=== PATIENT | male | born 1985 | race Caucasian/White ===

== ENCOUNTER 2021-07-26 01:58 | Emergency (ER) | payer OTHER ==
[~2021-07-26] VITALS: Ht 177.8 cm; Wt 127.0 kg
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
[2021-07-26 02:00] VITALS: BP 125/85
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
[2021-07-26] MEDS: ONDANSETRON 4 MG/2 ML VIAL IVP ONE (02:32)
[2021-07-26] MEDS: fentaNYL citrate 0.05 MG/ML VIAL IVP ONE (02:33)
[2021-07-26 02:39] LABS: HEMOGLOBIN 13.4 g/dL (12.0-18.0)
[2021-07-26 02:46] LABS: BASOPHILS % (AUTO) 0.4 % (0.0-2.0); EOSINOPHILS # (AUTO) 0.3 K/uL (0-0.4); HEMATOCRIT 39.6 % (36-52); LYMPHOCYTES # (AUTO) 3.5 K/uL (2.0-11.5); MEAN CORPUSCULAR HEMOGLOBIN 29 pg (27-31); MEAN CORPUSCULAR HGB CONC 34 g/dL (33-37); MEAN CORPUSCULAR VOLUME 86.8 fL (80-94); MONOCYTES # (AUTO) 0.6 K/uL (0.8-1.0); MONOCYTES % (AUTO) 6.4 % (1.7-9.3); NEUTROPHILS # (AUTO) 5.2 K/uL (1.8-7.7); NEUTROPHILS % (AUTO) 54.2 % (42.2-75.2); PLATELET COUNT (AUTO) 327 K/uL (140-450); RED BLOOD CELL COUNT(AUTO) 4.57 MIL/uL (4.20-6.10); RED CELL DISTRIBUTION WIDTH 13.5 % (11.6-13.7); WHITE BLOOD COUNT (AUTO) 9.7 K/uL (4.8-10.8)
--- NOTE | 2021-07-26 02:52 | NUR ---
PT TAKEN TO RADIOLOGY
[2021-07-26 02:56] LABS: PROTHROMBIN TIME 10.5 secs (10.8-13.4)
[2021-07-26 03:02] LABS: ANION GAP 11.4 (8-16); CARBON DIOXIDE 29.3 mmol/L (21-32); CREATININE 1.1 mg/dL (0.6-1.3); POTASSIUM 3.7 mmol/L (3.5-5.1)
--- NOTE | 2021-07-26 04:30 | NUR ---
PATIENT STATES PAIN IS RELIVED AND NOW 2/10 IN NECK. PATIENT REMAINS ALERT AND ORIENTED X 4. VSS ON CARIDAC MONITOR.
[2021-07-26 04:32] VITALS: BP 136/85
[2021-07-26] MEDS ORDERED: ACET-10509 PO (04:50)
[2021-07-26] MEDS ORDERED: CYCL-711 PO (04:50)
--- NOTE | 2021-07-26 05:00 | NUR ---
Patient discharged with v/s stable. Written and verbal after care instructions given and explained. Patient alert, oriented and verbalized understanding of instructions. Ambulatory with steady gait. All questions addressed prior to discharge. ID band removed. Patient advised to follow up with PMD. Rx of FLEXERIL, ACETAMINOPHEN given. Patient educated on indication of medication including possible reaction and side effects. Opportunity to ask questions provided and answered.
== END 2021-07-26 05:00 | disposition home or self-care (01) ==
LOC: MED 01:58
DX: S16.1XXA Strain of muscle, fascia and tendon at neck level, initial encounter (principal); R07.89 Other chest pain; E11.9 Type 2 diabetes mellitus without complications; V89.2XXA Person injured in unspecified motor-vehicle accident, traffic, initial encounter; Y93.89 Activity, other specified; Y92.410 Unspecified street and highway as the place of occurrence of the external cause; Y99.8 Other external cause status
CPT/HCPCS: 36415; 70450; 71045; 71260; 72125; 74177; 80048; 85025; 85610; 85730; 96374; 96375; 99285; G0482; J2405; J3010; Q9967